=== PATIENT | female | born 1960 | race Caucasian/White ===

== ENCOUNTER 2017-03-17 19:49 | Inpatient (IN) ==
[2017-03-17] MEDS ORDERED: DUONEB (A & A) INH ONE (20:24)
[2017-03-17] MEDS ORDERED: ATIVAN IV ONE (20:24)
[2017-03-17] MEDS ORDERED: ZOFRAN IV ONE (20:24)
[2017-03-17] MEDS ORDERED: MORPHINE IV ONE (20:25)
[2017-03-17 21:30] LABS: BE 9.9 mmoll (-3.0-3.0); BLOOD TYPE ARTERIAL; DRAW SITE L RADIAL; PCO2(98.6) 47 mmHg (35-45); PO2(98.6) 88 mmHg (60-100); SAMPLE BLOOD; SAO2 93.5 % (95.0-100.0); THB 15.2 g/dL (11.5-17.4); pH(98.6) 7.48 (7.35-7.45)
--- NOTE | 2017-03-17 21:33 | EKG Report ---
Test Performed on : 03/17/2017 9:26:18 PM Test Reason : AMS Blood Pressure : / mmHG Vent. Rate : 083 BPM Atrial Rate : 083 BPM P-R Int : 132 ms QRS Dur : 082 ms QT Int : 406 ms P-R-T Axes : 041 021 047 degrees QTc Int : 477 ms Normal sinus rhythm. Normal ECG When compared with ECG of 11-MAY-2016 16:05, No significant change was found Unconfirmed Result
[2017-03-17 21:34] LABS: ALLEN TEST YES; MODALITY CANNULA
[2017-03-17 22:01] LABS: MANUAL DIFF NEEDED? NO
[2017-03-17 22:03] LABS: BASO% 0.2 % (0.0-0.8); EOS# 0.04 X1000 (0.0-0.7); EOS% 0.5 % (0.0-10.0); HEMATOCRIT 39.8 % (37.0-47.0); HEMOGLOBIN 12.5 g/dL (12.0-16.0); IMM GRAN# 0.04 X1000 (0.0-0.04); IMM GRAN% 0.5 % (0.0-0.5); LYMPH# 1.51 X1000 (1.2-3.4); LYMPH% 18.3 % (20.5-51.1); MCH 27.8 PG (27-31); MCHC 31.4 g/dL (33-37); MCV 88.6 FL (81-99); MONO% 7.3 % (1.7-9.3); MPV 9.1 FL (7.4-10.4); NEUT% 73.2 % (42.2-75.2); PLT 279 X1000 (130-400); RBC 4.49 XMIL (4.2-5.4)
[2017-03-17 22:35] LABS: AGAP 15; ALBUMIN 4.5 g/dL (3.5-5.0); ALKALINE PHOSPHATASE 158 U/L (32-104); BUN 20 mg/dL (8-22); CHLORIDE 96 mmol/L (98-107); CK PROFILE 60 U/L (24-173); COSMO 283; GOT 23 U/L (10-30); GPT 18 U/L (10-36); POTASSIUM 3.3 mmol/L (3.5-5.1); SODIUM 140 mmol/L (136-145); TCO2 29 mmol/L (25-35); TOTAL PROTEIN 8.2 g/dL (6.3-8.3)
[2017-03-17 22:40] LABS: BILIRUBIN URINE 1+ (NEGATIVE); BLOOD URINE TRACE (NEGATIVE); CLARITY CLEAR (CLEAR); COLOR YELLOW; GLUCOSE URINE NEGATIVE (NEGATIVE); LEUKOCYTES URINE TRACE (NEGATIVE); NITRITE URINE NEGATIVE (NEGATIVE); PROTEIN URINE 1+(30 mg/dL) mg/dL (NEGATIVE)
[2017-03-17 22:46] LABS: UR AMPHETAMINES QUAL NONE DETECTED (NONE DETECT); UR BARBITUATES QUAL NONE DETECTED (NONE DETECT); UR BENZODIAZEPIN QUAL NONE DETECTED (NONE DETECT); UR CANNABINOIDS QUAL NONE DETECTED (NONE DETECT); UR COCAINE QUAL NONE DETECTED (NONE DETECT); UR MDMA QUAL NONE DETECTED (NONE DETECT); UR METHADONE QUAL NONE DETECTED (NONE DETECT); UR METHAMPHETAMINE QUAL NONE DETECTED (NONE DETECT); UR OPIATES QUAL NONE DETECTED (NONE DETECT); UR OXYCODONE QUAL NONE DETECTED (NONE DETECT); UR PCP QUAL NONE DETECTED (NONE DETECT); UR TCA QUAL NONE DETECTED (NONE DETECT)
[2017-03-17 22:48] LABS: URINE CULTURE PL NEEDED? YES; URINE EPITHELIAL CELLS <10 /HPF (<10); URINE RBC <10 /HPF (<10); URINE SOURCE CLEAN CATCH; URINE WBC <10 /HPF (<10); UROBILINOGEN URINE 3+(8 mg/dL)
[2017-03-17 22:55] LABS: INR 0.95 (0.86-1.15)
[2017-03-17 22:56] LABS: PTT PL 26.5 Seconds (22.6-43.9)
[2017-03-17] MEDS ORDERED: ASPIRIN PO ONE (23:15)
--- NOTE | 2017-03-17 23:19 | PROVIDER DOCUMENTATION ---
This chart was entered by Yanni Killian Scribe, acting as scribe for Tommy Ren MD. HPI-General Adult - General Chief Complaint: Altered Mental Status Stated Complaint: ams Time Seen by Provider: 03/17/17 20:04 Source: patient Allergies/Adverse Reactions: Patient Allergies Allergy/AdvReac Type Severity Reaction Status Date / Time hydrocodone bitartrate * Allergy ITCHING Verified 03/17/17 19:59 [From Lortab] Home Medications: Home Medication List Medication Instructions Recorded Confirmed Last Taken Type Buprenorphine S.l. [Subutex] 8 mg SL TID 07/10/15 03/17/17 05/17/16 04:30 History 8 Gabapentin [Neurontin] 1,200 mg PO TID 07/10/15 03/17/17 05/17/16 04:30 History 1200 Budesonide/Formoterol Fumarate 1 puff IH DAILY 05/11/16 03/17/17 05/15/16 History [Symbicort 160-4.5 Mcg Inhaler] 1 Tiotropium Randolph Inhaler 1 puff INH RTDAILY 05/11/16 03/17/17 05/16/16 10:00 History [Spiriva] 1 Venlafaxine [Effexor] 37.5 mg PO DAILY 05/11/16 03/17/17 05/17/16 04:30 History 37.5 ATORVAstatin [Lipitor] 40 mg PO DAILY 03/17/17 03/17/17 Unknown History - History of Present Illness -Gen Adult Nature of Presenting Problems: 56 Y/O F presents to ED with AMS. Pt is very anxious and tearful on exam. Pt states that she is scared and doesn't feel good. Pt states hx of being scared with depression currently on gabapentin. pt states that she is Nauseous with ABD pain/discomfort. Pt states dysuria for 2 days. Location of Pain/Injury: reports: abdomen Pain Radiation: reports: no radiation Quality of Pain: reports: aching Severity: reports: moderate Onset/Duration: reports: this morning Timing: reports: still present Context/Activities at Onset: reports: none (3) Associated Symptoms: reports: diarrhea, nausea, other (ABD discomfort). denies : vomiting Similar Symptoms Previously?: Yes Review of Systems - Adult - REVIEW OF SYSTEMS - ADULT Constitutional: denies: chills, fever Eyes: reports: no symptoms reported Ears, Nose, Mouth & Throat: reports: no symptoms reported Cardiovascular: reports: no symptoms reported Respiratory: reports: no symptoms reported Gastrointestinal: reports: abdominal pain, nausea. denies: diarrhea, vomiting Genitourinary: reports: dysuria Musculoskeletal: reports: no symptoms reported Integumentary: reports: no symptoms reported Neurological: reports: no symptoms reported Psychiatric: reports: depression. denies: suicidal thoughts Endocrine: reports: no symptoms reported Hematologic/Lymphatic: reports: no symptoms reported Allergic/Immunologic: reports: no symptoms reported All Other Systems: Reviewed and Negative Past History - Adult - PAST MEDICAL HISTORY-ADULT Review of Records: reports: Old Records Reviewed, Nursing Assessment Review, Medications Reviewed, Social history reviewed & non-contributory. Major Childhood Illnesses: reports: denies history Cardiovascular: reports: HTN Respiratory: reports: COPD Gastrointestinal: reports: denies history Obstetrical/Gynecological: reports: denies history Genitourinary: reports: denies history Musculoskeletal: reports: denies history Neurological: reports: denies history Endocrine/Immune: reports: denies history Other Conditions: reports: denies history - PRIOR SURGERIES/PROCEDURES Surgical/Procedure History: reports: reviewed, not pertinent - FAMILY HISTORY Family History: reviewed, not pertinent Physical Exam-General - PHYSICAL EXAM-ADULT Initial Vital Signs Reviewed: Yes - CONSTITUTIONAL General Appearance: alert, anxious, slow to respond - EYES Eyes: PERRL/EOMI, pink conjunctivae - HEAD, EARS, NOSE, MOUTH & THROAT HENMT: normocephalic/atraumatic, moist mucous membranes, normal ENT inspection, TMs normal, pharynx normal - NECK Neck: full range of motion - RESPIRATORY Respiratory: wheezing (BIALTERAL) - CARDIOVASCULAR Cardiovascular: regular rate, rhythm - GASTROINTESTINAL (ABDOMEN) Abdominal Exam: tenderness (RLQ,RUQ), hernia - MUSCULOSKELETAL Back Exam: normal inspection, no CVA tenderness Extremity: normal range of motion, non-tender - SKIN Integumentary: normal color, normal turgor - PSYCHIATRIC Psych/Mental Status: oriented x 3, anxious, depressed affect Progress - PLAN OF CARE/RESULTS Progress/Plan/Lab Results: Vital Signs - 8 hr 03/17/17 19:50 Temperature 98.2 F Pulse Rate 96 H Respiratory Rate 20 Blood Pressure 161/103 O2 Sat by Pulse Oximetry 93 L Result Diagrams: 03/17/17 21:47 03/17/17 21:47 - REASSESSMENT Reassessment #1 Time Reassessed: 23:18 (pt is much more relaxed however can't remember month or preseident or her birthdate) Status: improving - EKG 1 Time of EKG reading by physician:: 21:26 EKG Read and Signed by:: Tommy Ren EKG Interpretation (*Must complete 3 of following elements*): Normal Rate: 83 Rhythm: NSR Comments: Normal ECG - XRAY 1 XRAY Study: Chest Impression: Normal XRAY Interpretation: NAD - CT/MRI 1 CT Study: Head Impression: Abnormal CT Results: Focal encephalomalacia in the left parietal lobe near cranial vault. Departure - Departure Date of Disposition Decision: 03/17/17 Time of Disposition Decision: 23:19 DIAGNOSIS: CVA (cerebral vascular accident) Qualifiers: CVA mechanism: unspecified Qualified Code(s): I63.9 - Cerebral infarction, unspecified Disposition: ADMITTED INPATIENT 09 Certified Medical Emergency: Emergent Condition: Good Referrals and Follow-Ups: UNKNOWN, [Primary Care Provider] - - Critical Care Note This patient required my direct & personal management of CC.: No This chart was documented by the indicated scribe, (Yanni Killian Scribe) and accurately reflects the services I performed and decisions made by me, Tommy Ren MD, as attested by the provider's signature.
--- NOTE | 2017-03-18 06:29 | Diag Imaging Result Doc PS360 ---
EXAM: HEAD W/O CONTRAST HISTORY: AMS TECHNIQUE: Dose reduction protocol COMPARISON: None. FINDINGS: No parenchymal hemorrhage. No epidural or subdural hematoma. No subarachnoid hemorrhage. No mass identified on this noncontrasted exam. No hydrocephalus. Questionable small ischemic area/encephalomalacia in the left parietal lobe superiorly. No sinus opacification. IMPRESSION: No hemorrhage. No acute abnormality. A preliminary report was given at 9:01 PM Electronically signed by Epi Salgado 03/18/2017 6:27 AM
--- NOTE | 2017-03-18 07:43 | Diag Imaging Result Doc PS360 ---
EXAM: CHEST-1 VIEW HISTORY: AMS TECHNIQUE: AP COMPARISON: 05/19/2016 FINDINGS: The lungs are well expanded. The heart is not enlarged. The vessels are not distended. There is a left-sided portacatheter. No pneumothorax. There has been prior surgery to the lower neck and there are multiple surgical clips in the right axilla. No pneumonia. IMPRESSION: Negative exam.. Electronically signed by Eip Salgado 03/18/2017 7:41 AM
[2017-03-18] MEDS ORDERED: EFFEXOR PO SCH (09:30)
[2017-03-18] MEDS ORDERED: LIPITOR PO SCH (09:30)
[2017-03-18] MEDS ORDERED: KLOR-CON PO ONE (09:30)
[2017-03-18] MEDS ORDERED: SPIRIVA INH SCH (09:30)
[2017-03-18] MEDS ORDERED: SYMBICORT 160/4.5 MICROGM INHALER INH SCH (09:30)
[2017-03-18] MEDS ORDERED: PHENERGAN PO PRN (09:45)
[2017-03-18 11:16] VITALS: BP 178/96
[2017-03-18] MEDS ORDERED: SUBUTEX SL SCH (13:00)
[2017-03-18] MEDS ORDERED: NEURONTIN PO SCH (13:00)
--- NOTE | 2017-03-18 15:56 | HISTORY AND PHYSICAL ---
ADMISSION DATE: 03/17/2017 PRIMARY CARE PHYSICIAN: Dr. Kwame Rubio. CHIEF COMPLAINT: Nausea, abdominal pain and altered mental status. HISTORY OF PRESENTING ILLNESS: This is a 56-year-old female who presents to [facility] ER with complaints of feeling anxious and nauseated with abdominal pain and dysuria for 2 days. On arrival to the emergency room it is documented in their records that she could not remember the month, the president or her today. This a.m., she is alert, awake and oriented to person, place, and time. States that she has severe panic attacks and that she thinks that is what brought this on. She continues to complain of nausea. No vomiting, diarrhea. Workup in the ER showed a head CT that showed no hemorrhage. No acute abnormality. A chest x-ray, this was a negative exam. Urinalysis was essentially negative. She did have a little 2+ bacteria but otherwise clear. She had a mildly low potassium at 3.3. Urine drug screen was negative. Serum alcohol level showed non- detected. So, she was admitted for further evaluation and treatment. PAST MEDICAL HISTORY: Depression, hypertension, COPD, and breast cancer. PAST SURGICAL HISTORY: Bilateral mastectomy. FAMILY HISTORY: Noncontributory. SOCIAL HISTORY: She currently lives alone. She smokes 1 pack of cigarettes a day for the past 40 years and denied any alcohol or illicit drug use. ALLERGIES: Hydrocodone. HOME MEDICATIONS: She takes Lipitor 40 mg p.o. daily, Symbicort 160/4.5 inhalation daily and Subutex 8 mg sublingually t.i.d., Neurontin 1200 mg p.o. t.i.d., Spiriva inhalation daily, Effexor 37.5 mg p.o. daily. LABORATORY DATA: Showed a white blood cell count of 8.25, hemoglobin 12.5, hematocrit 39.8, platelets 279,000. PT and INR of 13.0 and 0.95. ABG with a pH of 7.48, pCO2 of 47, PO2 88, bicarbonate 32.5, sodium 140, potassium 3.3, chloride 96, CO2 29, BUN of 20 creatinine 0.5 glucose 110, cardiac enzyme was negative. Lipase of 7, urinalysis was negative except for 3+ ketones and 2+ bacteria. Urine drug screen showed none detected. Serum alcohol level was 0. Chest x-ray showed a negative exam. EKG showed normal sinus rhythm at 83. Head CT showed no hemorrhage and no acute abnormality. REVIEW OF SYSTEMS: She was positive for nausea, abdominal pain and dysuria. Confusion. Otherwise negative review of systems. PHYSICAL EXAMINATION: On arrival, she had a temperature of 98.2 degrees. Pulse 96, respirations 20, blood pressure 161/103, saturating 93-97% on 4 L via nasal cannula. Currently blood pressure is 149/63. General: This is a 56-year-old female who is lying in the bed, and upon this assessment she is alert and oriented to person, place, and time and purpose. On arrival to the emergency room per their documentation she did have difficulty with her date of , president or the month of the year. Currently she has answered all of those questions appropriately. HEENT: Normocephalic and atraumatic. Pupils are equal, round, reactive to light. Extraocular movements are intact. Oropharynx and nares are clear. Patient is noted to be somewhat diaphoretic but states that she has hot flashes. Pupils are equal, round, reactive to light. Extraocular movements are intact. Oropharynx and nares are clear. Neck: Supple. Lungs: Clear to auscultation bilaterally with equal lung expansion and chest wall movement. Heart: With regular rate and rhythm. No murmurs, rubs, or gallops. Abdomen: Soft, nontender, nondistended. Bowel sounds are present x4 quadrants. Extremities: There is no clubbing, cyanosis, or edema. Neurological: The cranial nerves 2-12 appear grossly intact. ASSESSMENT: 1. Altered mental status. 2. Hypertension. 3. Mild hypokalemia. 4. Tobacco abuse. PLAN: She was admitted to the medical unit at [facility]. Placed on a regular diet. Neuro checks q.4 hours for 24 hours. We are going to check an MRI of her brain with and without contrast this a.m. We will continue her home medications. We will supplement that mild potassium a 20 mEq potassium today. If her MRI is clear, she is currently much more alert and oriented, we may possibly be able to discharge her later on this afternoon after discussion with attending. Dictated by KIRA Lucas for Angel Luis Gonzalez MD cc: MD Remedios Bonilla CRNP Gregory S. Cheatham, MD
--- NOTE | 2017-04-18 04:09 | DISCHARGE SUMMARY ---
ADMISSION DATE: 03/17/2017 DISCHARGE DATE: 03/18/2017 PRIMARY CARE PHYSICIAN: Dr. Kwame Rubio. ADMISSION DIAGNOSES: 1. Altered mental status. 2. Hypertension. 3. Mild hypokalemia. 4. Tobacco abuse. DISCHARGE DIAGNOSES: 1. Altered mental status, resolved. 2. Hypertension. 3. Mild hypokalemia. 4. Tobacco abuse. SUMMARY OF FINDINGS: This is a 56-year-old, female who presented to the emergency room feeling anxious and nauseated with abdominal pain and dysuria for 2 days. On arrival to the emergency room, it was documented in their records that she could not remember the month, the President, or her birthday. On assessment by attending, she was alert, awake, and oriented to person, place, and time. States that she had severe panic attacks and that she thought this was what brought it on. Continued to complain of nausea. Had no vomiting or diarrhea. Her CT of the head showed no hemorrhage. No acute abnormality. She was admitted. We did neurological checks for [address] of the head had shown, on 03/17/2017, no hemorrhage, no acute abnormality. It appeared that she was back at her baseline and so it was felt that she could safely be discharged home. DISCHARGE MEDICATIONS: Included atorvastatin 40 mg p.o. daily, Symbicort 160/4.5 mcg inhalation daily, Subutex 8 mg sublingually t.i.d., Neurontin 1200 mg p.o. t.i.d., Spiriva 1 inhalation daily, and Effexor 37.5 mg p.o. daily. FOLLOWUP: She will need to follow up with her primary care physician 1-2 weeks after discharge. Call their office for an appointment. All discharge instructions were reviewed with the patient and she verbalized understanding. A 35 minute discharge. Dictated by KIRA Lucas for Angel Luis Gonzalez MD cc: KIRA Lucas MD Malcolm R. Hendricks, MD
== END 2017-03-18 13:42 | disposition home or self-care (01) ==
LOC: P.ED 19:49 → P.MEDSURG 23:39
PROVIDERS: ATTEND Internal Medicine